=== PATIENT | female | born 1965 | race Caucasian/White ===

== ENCOUNTER 2017-02-12 09:36 | Emergency (ER) | payer OTHER ==
[~2017-02-12] VITALS: Ht 149.9 cm; Wt 90.5 kg
[~2017-02-12 09:36] MED LIST: ATENOLOL PO; BENAZEPRIL PO; GLIMEPIRIDE PO; HYDROCHLOROTHIAZIDE PO; INSU100C SC; JANUVIA PO; LANTUS INSULIN SQ; LIPITOR PO; METFORMIN PO
[2017-02-12 09:39] VITALS: Ht 149.9 cm; Wt 90.5 kg
[2017-02-12] MEDS ORDERED: KETOROLAC 15 MG INJ IV STA (10:07)
[2017-02-12] MEDS ORDERED: ONDANSETRON 4 MG INJ IV STA (10:07)
[2017-02-12] MEDS ORDERED: SOD CHLORIDE 0.9% 500 ML IV STA (10:07)
[2017-02-12 10:14] VITALS: TEMP 97.6
--- NOTE | 2017-02-12 10:28 | ERA ---
ER Documentation Chief Complaint Date/Time DATE: 02/12/17 TIME: 10:26 Chief Complaint abdominal pain x 1 month HPI 51-year-old diabetic female history of obesity who presents to the emergency room with 1 month of abdominal pain. She describes diffuse abdominal cramping that is moderate to severe, intermittent and constant for 1 month. No hematemesis no vomiting no melena no constipation. No abdominal surgical history. No unintentional weight loss. No chest pain or shortness of breath and no postprandial symptoms. ROS All systems reviewed and are negative except as per history of present illness. Medications Home Meds Active Scripts Dicyclomine Hcl* (Bentyl*) 10 Mg Capsule, 10 MG PO QID Y for abdominal cramping , #30 CAP Prov:GIANNI TOLEDO MD 02/12/17 Cephalexin* (Keflex*) 500 Mg Capsule, 500 MG PO BID for 7 Days, CAP Prov:GIANNI TOLEDO MD 02/12/17 Reported Medications [Lipitor] No Conflict Check, PO 07/11/15 Insulin Lispro (Humalog) 100 U/Ml Cartridge, 0 SC SLIDING SCALE AC, EA 07/11/15 [Lantus Insulin] No Conflict Check, SQ 07/11/15 [Metformin] No Conflict Check, PO 07/11/15 [Glimepiride] No Conflict Check, PO 07/11/15 [Januvia] No Conflict Check, PO 07/11/15 [Hydrochlorothiazide] No Conflict Check, PO 07/11/15 [Atenolol] No Conflict Check, PO 07/11/15 [Benazepril] No Conflict Check, PO 07/11/15 Allergies Allergies: Coded Allergies: No Known Allergy (Unverified , 07/11/15) PMhx/Soc Medical and Surgical Hx: pt denies Medical Hx, pt denies Surgical Hx History of Surgery: No Anesthesia Reaction: No Hx Neurological Disorder: No Hx Respiratory Disorders: No Hx Cardiac Disorders: No Hx Psychiatric Problems: No Hx Miscellaneous Medical Probl: Yes (DMII) Hx Alcohol Use: No Hx Substance Use: No Hx Tobacco Use: No Smoking Status: Never smoker Physical Exam Vitals Vital Signs Date Time Temp Pulse Resp B/P Pulse Ox O2 Delivery O2 Flow Rate FiO2 02/12/17 10:14 97.6 18 150/77 96 02/12/17 09:39 97.6 96 18 150/77 96 Physical Exam General: Well developed, well nourished, no acute distress Head: Normocephalic, atraumatic. Eyes: Pupils equally reactive, EOM intact ENT: Moist mucous membranes Neck: Supple, no lymphadenopathy Respiratory: Lungs clear bilaterally, no distress Cardiovascular: RRR, no murmurs, rubs, or gallops Abdominal: Soft, mild diffuse tenderness without rebound or guarding, no tenderness to McBurney's point, negative Jamison sign, no pulsatile mass : Deferred MSK: No edema, no unilateral swelling, 5/5 strength Neurologic: Alert and oriented, moving all extremities, normal speech, no focal weakness, no cerebellar signs Skin: No rash Psych: Normal mood Result Diagram: 02/12/17 1026 02/12/17 1026 Results 24 hrs Laboratory Tests Test 02/12/17 10:26 White Blood Count 7.810^3/ul Red Blood Count 4.9810^6/ul Hemoglobin 15.4g/dl Hematocrit 44.9% Mean Corpuscular Volume 90.2fl Mean Corpuscular Hemoglobin 30.9pg Mean Corpuscular Hemoglobin Concent 34.3g/dl Red Cell Distribution Width 11.9% Platelet Count 97391^3/UL Mean Platelet Volume 9.5fl Neutrophils % 59.5% Lymphocytes % 29.5% Monocytes % 8.4% Eosinophils % 1.8% Basophils % 0.5% Nucleated Red Blood Cells % 0.0/100WBC Neutrophils # 4.610^3/ul Lymphocytes # 2.310^3/ul Monocytes # 0.710^3/ul Eosinophils # 0.110^3/ul Basophils # 0.010^3/ul Nucleated Red Blood Cells # 0.010^3/ul Urine Color LT. YELLOW Urine Clarity CLEAR Urine pH 6.0 Urine Specific Faith 1.015 Urine Ketones NEGATIVE Urine Nitrite POSITIVE Urine Bilirubin NEGATIVE Urine Urobilinogen 0.2 E.U./dL Urine Leukocyte Esterase NEGATIVE Urine Microscopic RBC 0-2/HPF Urine Microscopic WBC 2-5/HPF Urine Epithelial Cells FEW Urine Bacteria MANY Urine Hemoglobin TRACE Urine Glucose NEGATIVE% Urine Total Protein 1+ Sodium Level 137mmol/L Potassium Level 3.9mmol/L Chloride Level 101mmol/L Carbon Dioxide Level 27mmol/L Anion Gap 13 Blood Urea Nitrogen 18mg/dl Creatinine 0.50mg/dl Glucose Level 218mg/dl Calcium Level 9.4mg/dl Total Bilirubin 0.3mg/dl Direct Bilirubin 0.00mg/dl Indirect Bilirubin 0.3mg/dl Aspartate Amino Transf (AST/SGOT) 32IU/L Alanine Aminotransferase (ALT/SGPT) 50IU/L Alkaline Phosphatase 166IU/L Total Protein 8.2g/dl Albumin 4.3g/dl Globulin 3.90g/dl Albumin/Globulin Ratio 1.10 Lipase 256U/L Serum HCG, Qualitative NEGATIVE Current Medications Medications (Trade) Dose Ordered Sig/Zackary Route PRN Reason Start Time Stop Time Status Last Admin Dose Admin Sodium Chloride (NS) 500 ml @ 500 mls/hr Q1H STAT IV 02/12/17 10:07 02/12/17 11:06 DC 02/12/17 10:45 Ondansetron HCl (Zofran Inj) 4 mg ONCE STAT IV 02/12/17 10:07 02/12/17 10:10 DC Ketorolac Tromethamine (Toradol) 15 mg ONCE STAT IV 02/12/17 10:07 02/12/17 10:10 DC 02/12/17 10:47 Procedures/MDM EKG, MONITORS, & DIAGNOSTIC IMAGING: CT abdomen and pelvis: IMPRESSION: 1. Hepatic steatosis and hepatomegaly are noted. 2. No mass, lymphadenopathy, or focal acute inflammatory process is identified. RPTAT: AA LAB INTERPRETATION: Possible urinary tract infection otherwise unremarkable laboratory studies MEDICAL DECISION MAKING: The patient presents with 1 month of abdominal pain. This appears to be nonspecific however the patient has diffuse abdominal tenderness to palpation. For this reason, given the patient's age, history of diabetes CT imaging of the abdomen and pelvis would be appropriate. Unclear etiology, consider diverticulosis, diverticulitis, bowel obstruction, malignancy, low clinical concern for choledocholithiasis, cholecystitis or acute appendicitis. No evidence of acute aortic process. ER COURSE: The patient has no evidence of hepatobiliary obstruction or leukocytosis. Questionable UTI and urinalysis. CT imaging is negative. The patient will be started on Bentyl and given Keflex for urinary tract infection. The patient absolutely needs outpatient follow-up and likely colonoscopy. Referral information provided I kept the patient and/or family informed of laboratory and diagnostic imaging results throughout the emergency room course. DISPOSITION PLAN: We discussed follow up with the patient's primary care doctor within 24 to 48 hours as needed. We also discussed return to the emergency room for worsening symptoms or worsening condition. Outpatient referral: Gastroenterology Discharge Medications: Keflex, Bentyl Departure Diagnosis: Primary Impression: UTI (urinary tract infection) Qualified Code: N30.00 - Acute cystitis without hematuria Additional Impression: Abdominal pain Qualified Code: R10.84 - Generalized abdominal pain Condition: Stable GIANNI TOLEDO MD February 12, 2017 10:28
[2017-02-12 10:38] LABS: ADD SCAN DIFF NO
[2017-02-12 10:42] LABS: ADD UMIC YES; BASOPHILS % 0.5 % (0.0-2.0); EOSINOPHILS # 0.1 10^3/ul (0.0-0.5); EOSINOPHILS % 1.8 % (0.0-7.0); HEMATOCRIT 44.9 % (37.0-47.0); HEMOGLOBIN 15.4 g/dl (12.0-16.0); LYMPHOCYTES # 2.3 10^3/ul (0.8-2.9); LYMPHOCYTES % 29.5 % (15.0-51.0); MEAN CORPUSCULAR HEMOGLOBIN 30.9 pg (29.0-33.0); MEAN CORPUSCULAR HGB CONC 34.3 g/dl (32.0-37.0); MEAN CORPUSCULAR VOLUME 90.2 fl (82.0-101.0); MEAN PLATELET VOLUME 9.5 fl (7.4-10.4); MONOCYTE # 0.7 10^3/ul (0.3-0.9); MONOCYTES % 8.4 % (0.0-11.0); NEUTROPHIL # 4.6 10^3/ul (1.6-7.5); NEUTROPHILS % 59.5 % (39.0-77.0); PLATELET COUNT 253 10^3/UL (140-415); RED BLOOD COUNT 4.98 10^6/ul (4.20-5.40); RED CELL DISTRIBUTION WIDTH 11.9 % (11.5-14.5); URINE BILIRUBIN (Dip) NEGATIVE (NEGATIVE); URINE BLOOD (Dip) TRACE (NEGATIVE); URINE COLOR LT. YELLOW (YELLOW); URINE GLUCOSE (Dip) NEGATIVE (NEGATIVE); URINE KETONES (Dip) NEGATIVE (NEGATIVE); URINE LEUKOCYTE ESTERASE (Dip) NEGATIVE (NEGATIVE); URINE NITRITE (Dip) POSITIVE (NEGATIVE); URINE TOTAL PROTEIN (Dip) 1+ (NEGATIVE); URINE UROBILINOGEN (Dip) 0.2 E.U./dL (0.1-1.0); WHITE BLOOD COUNT 7.8 10^3/ul (4.8-10.8)
[2017-02-12 10:57] LABS: BACTERIA,URINE MANY; URINE RBCS 0-2 /HPF (0)
[2017-02-12 10:59] LABS: ALBUMIN 4.3 g/dl (3.3-4.9); ALBUMIN/GLOBULIN RATIO 1.1; BILIRUBIN,INDIRECT 0.3 mg/dl (0-1.1); BILIRUBIN,TOTAL 0.3 mg/dl (0.2-1.3); CALCIUM 9.4 mg/dl (8.4-10.2); CREATININE 0.5 mg/dl (0.44-1.00); POTASSIUM 3.9 mmol/L (3.5-5.1); TOTAL PROTEIN 8.2 g/dl (6.1-8.1)
--- NOTE | 2017-02-12 11:50 | RADRPT ---
PROCEDURE: CT Abdomen and Pelvis without contrast. CLINICAL INDICATION: Lower abdominal pain, diarrhea TECHNIQUE: CT of the abdomen and pelvis was performed on a multi-detector scanner without IV contr ast. Coronal and sagittal images were reformatted from the axial data set. One or more of the foll owing dose reduction techniques were used: automated exposure control, adjustment of the mA and/or kV according to patient size, use of iterative reconstruction technique. CTDI = 22.98 mGy. DLP = 14 89.32 mGy-cm. COMPARISON: None. FINDINGS: CT abdomen: The lung bases are clear. The heart size is normal, without pericardial effusion. The liver is enl arged (20 cm) and fatty infiltrated, without evidence of focal mass. Gallbladder, biliary tree, branham creas, spleen, adrenal glands and kidneys are unremarkable. No urolithiasis or obstructive uropathy is identified. The stomach is grossly unremarkable. The aorta is of normal caliber. There is no retroperitoneal lymphadenopathy. The bill hepatis reg ion is clear. CT pelvis: No bowel obstruction, free intraperitoneal air or abscess is identified. The appendix is well visua lized and normal. There is no diverticulosis, diverticulitis or colitis. Urinary bladder, uterus a nd adnexa are grossly unremarkable. No pelvic mass, free fluid or lymphadenopathy is identified. The surrounding osseous structures are unremarkable. No osteolytic or osteoblastic lesion is detect ed. IMPRESSION: 1. Hepatic steatosis and hepatomegaly are noted. 2. No mass, lymphadenopathy, or focal acute inflammatory process is identified. RPTAT: AA .Ramón Lundberg MD, Date Time Electronically viewed and signed by .Ramón Lundberg MD, MD on 02/12/2017 11:49 .R/
[2017-02-12] MEDS ORDERED: DICY10CA60 PO (11:56)
[2017-02-12] MEDS ORDERED: CEPH-443 PO (11:56)
[2017-02-12 12:15] VITALS: BP 127/66; PULSE 85; RESP 14
== END 2017-02-12 12:38 | disposition home or self-care (01) ==
LOC: E/R 09:36
DX: N30.00 Acute cystitis without hematuria (principal); E11.9 Type 2 diabetes mellitus without complications; E66.9 Obesity, unspecified; Z68.41 Body mass index [BMI] 40.0-44.9, adult; Z79.4 Long term (current) use of insulin; Z79.84 Long term (current) use of oral hypoglycemic drugs
CPT/HCPCS: 36415; 74176; 80053; 81001; 83690; 84703; 85025; 96374; J1885; J7040; Z7502